=== PATIENT | female | born 1995 | race Two or more races ===

== ENCOUNTER 2017-11-05 15:29 | Emergency (ER) | payer SELFPAY ==
[2017-11-05] MEDS ORDERED: METOCLOPRAMIDE HCL INJ/PF 10 MG/2 ML SDV IV ONE (16:32)
[2017-11-05] MEDS ORDERED: RINGERS SOLUTION,LACTATED 1,000 ML IV ONE (16:32)
[2017-11-05] MEDS ORDERED: MAG HYDROX/AL HYDROX/SIMETH SUSP 30 ML UDCUP PO ONE (16:33)
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
[2017-11-05 20:00] VITALS: BP 123/78
== END 2017-11-05 18:15 | disposition home or self-care (01) ==
LOC: ER 15:29
DX: R11.2 Nausea with vomiting, unspecified (principal); F10.20 Alcohol dependence, uncomplicated
CPT/HCPCS: 99283; 96361; 96374; J2765; J7120

== ENCOUNTER 2017-11-28 10:11 | Emergency (ER) | payer SELFPAY ==
[2017-11-28] MEDS ORDERED: PREDNISONE 20 MG TABLET PO ONE (10:58)
[2017-11-28] MEDS ORDERED: IBUPROFEN 600 MG TABLET PO ONE (10:58)
--- NOTE | 2017-11-28 10:59 | ER Document Report ---
ED ENT - General Chief Complaint: Sore Throat Stated Complaint: SORE THROAT Time Seen by Provider: 11/28/17 10:36 Mode of Arrival: Ambulatory Information source: Patient Notes: 22-year-old female presented ED for complaint of swollen tonsils very difficult to speak each sore throat for 2 weeks worse for the last 2-3 days. She is afebrile speaking in full sentences. TRAVEL OUTSIDE OF THE [place] IN LAST 30 DAYS: No - HPI Patient complains to provider of: Ear problem, Throat problem Onset: Other - 2 weeks Onset/Duration: Intermittent, Worse Quality of pain: Achy, Sharp Severity: Severe Pain Level: 5 Context: Recent Illness Location of pain: Ears, Nose, Sinus, Throat Associated symptoms: Ear pain, Headache, Runny nose, Sinus pain, Sinus drainage , Sore throat. denies: Fever Similar symptoms previously: No Recently seen / treated by doctor: No - Related Data Allergies/Adverse Reactions: No Known Allergies Allergy (Unverified 11/05/17 15:34) Past Medical History - General Information source: Patient - Social History Smoking Status: Never Smoker Cigarette use (# per day): No Chew tobacco use (# tins/day): No Smoking Education Provided: No Frequency of alcohol use: None Drug Abuse: None Family History: Reviewed & Not Pertinent Patient has suicidal ideation: No Patient has homicidal ideation: No - Past Medical History Cardiac Medical History: Reports: None Pulmonary Medical History: Reports: None EENT Medical History: Reports: None Neurological Medical History: Reports: None Endocrine Medical History: Reports: None Renal/ Medical History: Reports: None Malignancy Medical History: Reports: None GI Medical History: Reports: None Musculoskeltal Medical History: Reports None Skin Medical History: Reports None Psychiatric Medical History: Reports: None Traumatic Medical History: Reports: None Infectious Medical History: Reports: None Past Surgical History: Reports: Hx Oral Surgery - abscess on tonsills - Immunizations Immunizations up to date: Yes Review of Systems - Review of Systems Constitutional: Recent illness EENT: Ear pain, Throat pain, Mouth swelling Cardiovascular: No symptoms reported Respiratory: No symptoms reported Gastrointestinal: No symptoms reported Genitourinary: No symptoms reported Female Genitourinary: No symptoms reported Musculoskeletal: No symptoms reported Skin: No symptoms reported Hematologic/Lymphatic: No symptoms reported Neurological/Psychological: No symptoms reported -: Yes All other systems reviewed and negative Physical Exam - Vital signs Vitals: Temp Pulse Resp BP Pulse Ox 99.1 F 100 16 127/80 H 98 11/28/17 10:16 11/28/17 10:16 11/28/17 10:16 11/28/17 10:16 11/28/17 10:16 Interpretation: Normal - General General appearance: Appears well, Alert - HEENT Head: Normocephalic, Atraumatic Eyes: Normal Pupils: PERRL Ears: Normal External canal: Normal Tympanic membrane: Normal Sinus: Normal Nasal: Purulent discharge, Swelling Mouth/Lips: Normal Pharynx: Erythema, Post nasal drainage, Tonsillar hypertrophy. No: Exudate Neck: Anterior cervical chain - Respiratory Respiratory status: No respiratory distress Chest status: Nontender Breath sounds: Normal Chest palpation: Normal - Cardiovascular Rhythm: Regular Heart sounds: Normal auscultation Murmur: No - Abdominal Inspection: Normal Distension: No distension Bowel sounds: Normal Tenderness: Nontender Organomegaly: No organomegaly - Back Back: Normal, Nontender - Extremities General upper extremity: Normal inspection, Nontender, Normal color, Normal ROM , Normal temperature General lower extremity: Normal inspection, Nontender, Normal color, Normal ROM , Normal temperature, Normal weight bearing. No: Emiliano's sign - Neurological Neuro grossly intact: Yes Cognition: Normal Orientation: AAOx4 [place] Coma Scale Eye Opening: Spontaneous Karthik Coma Scale Verbal: Oriented Karthik Coma Scale Motor: Obeys Commands Karthik Coma Scale Total: 15 Speech: Normal Motor strength normal: LUE, RUE, LLE, RLE Sensory: Normal - Psychological Associated symptoms: Normal affect, Normal mood - Skin Skin Temperature: Warm Skin Moisture: Dry Skin Color: Normal Course - Re-evaluation Re-evalutation: 11/28/17 21:54 She was treated with ibuprofen, prednisone, and penicillin G for her strep pharyngitis. She is also encouraged to use ibuprofen. He is to follow-up with her primary doctor. - Vital Signs Vital signs: Temp Pulse Resp BP Pulse Ox 98.9 F 78 16 120/76 100 11/28/17 11:34 11/28/17 11:34 11/28/17 11:34 11/28/17 11:34 11/28/17 11:34 Discharge - Discharge Clinical Impression: Strep pharyngitis, HTN (hypertension) Condition: Stable Disposition: HOME, SELF-CARE Instructions: Family Physicians / Practices Additional Instructions: STREP THROAT: Your sore throat is due to the streptococcus germ (strep throat). Strep throat usually makes you feel quite ill with fever and aches, headache, swollen sore throat, and tender bumps under the angles of the jaw. Strep throat requires antibiotic treatment. Although the sore throat may go away by itself, complications such as rheumatic fever, kidney disease, or throat abscess can occur. We usually prescribe antibiotics by mouth. Be sure to take the medicine until it's gone. If you stop early, the strep may come back. If you are vomiting, are severely ill, or can't remember to take pills, we can give you an antibiotic shot. Take acetaminophen or ibuprofen for pain and fever. Sip frequent clear liquids, or use popsicles or ice chips. Anesthetic sprays or lozenges may help. Make sure the air in the room is not too dry. Avoid using decongestants or antihistamines. Call the doctor if there is no improvement in three days, or if you have difficulty breathing, increasing throat pain, high fever, rash, or frequent vomiting. Penicillins The antibiotic you have received is a member of the penicillin family. This is a very useful class of antibiotics. The particular type of antibiotic chosen for you was determined by the nature of your problem. Penicillins are absorbed best when taken on an empty stomach, and should be taken either a half hour before or two hours after a meal. Some newer medicines of the penicillin class are better taken with food -- if this is the case, the pharmacist will label the medicine to alert you. Penicillins usually have no side effects. However, allergy to penicillins is common. If you have had an allergic reaction to any drug of the penicillin family, you should never take any other penicillin. Notify your doctor at once if you develop hives, itching, swelling, faintness, or shortness of breath. Less serious side effects can include nausea or diarrhea. STEROID MEDICATION: You have been given a medicine of the cortisone/steroid class. This medication is used to control inflammation or allergy. It is usually only given for a short period of time, until the acute process subsides. There are usually no side effects from short-term use of cortisone-like medications. Some persons feel an increased sense of well-being and are not sleepy at bedtime. Long-term use of cortisone medications is best avoided, unless required for a severe condition. If your condition does not remit, or relapses after the course of corticosteroid medication, you should consult your physician. Ibuprofen Ibuprofen is an excellent, safe drug for pain control. In addition, it has potent antiinflammatory effects which are beneficial, especially in the treatment of injuries, arthritis, or tendonitis. It's best to take ibuprofen with food. Persons with ulcer disease or allergy to aspirin should notify their physician of this before taking ibuprofen. Take the medication exactly as prescribed. Don't take additional doses unless instructed to do so by your doctor. If you develop wheezing, shortness of breath, hives, faintness, stomach pain, vomiting, or dark black stools, return for re-evaluation at once. FOLLOW-UP CARE: If you have been referred to a physician for follow-up care, call the physician s office for an appointment as you were instructed or within the next two days. If you experience worsening or a significant change in your symptoms, notify the physician immediately or return to the Emergency Department at any time for re-evaluation. Prescriptions: Prednisone [Deltasone 20 mg Tablet] 3 tab PO DAILY 2 Days tablet Forms: Elevated Blood Pressure, Return to Work
[2017-11-28] MEDS ORDERED: PENICILLIN G BENZATHINE 1.2 MILLION UNIT/2 ML DISP.SYRIN IM ONE (11:22)
[2017-11-28 11:35] VITALS: BP 120/76
== END 2017-11-28 11:33 | disposition home or self-care (01) ==
LOC: ER 10:11
DX: J02.0 Streptococcal pharyngitis (principal); I10 Essential (primary) hypertension; J34.89 Other specified disorders of nose and nasal sinuses; H92.09 Otalgia, unspecified ear; R51 Headache; R09.82 Postnasal drip
CPT/HCPCS: 99283; 96372; 87880; J0561; J7512

== ENCOUNTER 2017-12-19 12:22 | Emergency (ER) | payer OTHER ==
[2017-12-19 12:27] VITALS: BP 102/66
[2017-12-19] MEDS ORDERED: IBUPROFEN 800 MG TABLET PO ONE (13:00)
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
== END 2017-12-19 13:07 | disposition home or self-care (01) ==
LOC: ER 12:22
DX: S16.1XXA Strain of muscle, fascia and tendon at neck level, initial encounter (principal); S46.911A Strain of unspecified muscle, fascia and tendon at shoulder and upper arm level, right arm, initial encounter; X58.XXXA Exposure to other specified factors, initial encounter; Y99.0 Civilian activity done for income or pay
CPT/HCPCS: 99283